=== PATIENT | female | born 1975 | race Caucasian/White ===

== ENCOUNTER → 2017-02-06 | Outpatient (CLI) | payer OTHER ==
[2017-02-06 08:58] LABS: CHLORIDE,CL 105 mmol/L (98-110); SODIUM,NA 139 mmol/L (136-146)
== END ==
LOC: MW.CHFP 08:13
PROVIDERS: ATTEND Nurse Practitioner Family
DX: I10 Essential (primary) hypertension (principal); R73.09 Other abnormal glucose
CPT/HCPCS: 36415; 80053; 80061; 83036

== ENCOUNTER 2019-11-14 16:25 | Emergency (ER) | payer OTHER ==
[2019-11-14] MEDS ORDERED: Piperacillin/Tazobactam 3.375 GM in Sodium Chloride 0.9% 50 ML IV ONE (17:09)
[2019-11-14] MEDS ORDERED: Ondansetron 4 MG/2 ML SDV IVPUSH ONE (17:10)
[2019-11-14] MEDS ORDERED: Sodium Chloride 0.9% 1,000 ML IV SCH (17:15)
--- NOTE | 2019-11-14 17:31 | EDM.PDOC ---
<Esteban Avalosght - Last Filed: 11/14/19 19:18> ED HPI GENERAL MEDICAL PROBLEM - General Chief Complaint: Abdominal Pain Stated Complaint: ABDOMINAL PAIN Time Seen by Provider: 11/14/19 17:00 Source of Information: Reports: Patient History Limitations: Reports: No Limitations - History of Present Illness Onset: Sudden, Gradual (over past 4 days but has gotten worse in that if she is driving and hits a bump it hurts.) Duration: Getting Worse (As noted above.) Location: Reports: Abdomen (RLQ of the abdomen.) Quality: Reports: Sharp, Stabbing, Throbbing Severity: Moderate (moderate when laying down it's a 7 but when she stands up it 's 9.5) Improves with: Reports: Movement (especially when standing up.), Other (laying on either side.) Context: Reports: Activity Associated Symptoms: Reports: Fever/Chills (slight fever with mild ), Loss of Appetite, Nausea/Vomiting (Nausea but no vomiting). Denies: Shortness of Breath , Syncope, Weakness ABD Pain Score (Numeric/FACES): 9 - Related Data Allergies Allergy/AdvReac Type Severity Reaction Status Date / Time doxycycline Allergy Itching Verified 11/14/19 16:53 emollient combination no. 21 Allergy Itching Verified 11/14/19 17:34 [From Lola Nourishing Caruso Butter] lanolin Allergy Rash Verified 11/14/19 16:53 Penicillins Allergy Swelling Verified 11/14/19 16:53 sulfamethoxazole Allergy Itching Verified 11/14/19 16:53 [From Bactrim] trimethoprim [From Bactrim] Allergy Itching Verified 11/14/19 16:53 Home Meds: Home Meds Gabapentin [Neurontin] 300 mg PO TID 02/11/15 [History] Lisinopril 10 mg PO DAILY 02/11/15 [History] Venlafaxine HCl [Venlafaxine ER] 150 mg PO DAILY 02/11/15 [History] hydroCHLOROthiazide [Hydrochlorothiazide] 25 mg PO DAILY PRN 02/11/15 [History] traZODone 25 mg PO BEDTIME 02/11/15 [History] traMADol [Ultram] 50 mg PO Q6H PRN #20 tab 08/27/15 [Rx] Past Medical History Cardiovascular History: Reports: Hypertension Psychiatric History: Reports: Anxiety, Depression - Infectious Disease History Infectious Disease History: Reports: Chicken Pox Social & Family History - Family History Family Medical History: Noncontributory - Tobacco Use Smoking Status *Q: Never Smoker - Recreational Drug Use Recreational Drug Use: No ED ROS GENERAL - Review of Systems Review Of Systems: See Below Constitutional: Reports: Fever, Decreased Appetite. Denies: Fatigue, Night Sweats, Diaphoresis, Weight Loss HEENT: Reports: No Symptoms Respiratory: Reports: No Symptoms Cardiovascular: Reports: No Symptoms. Denies: Dyspnea on Exertion, Edema, Lightheadedness, Palpitations, PND, Syncope Endocrine: Reports: No Symptoms GI/Abdominal: Reports: Abdominal Pain (Right lower quad.), Anorexia, Decreased Appetite, Nausea. Denies: Black Stool, Bloody Stool, Constipation, Diarrhea, Vomiting : Reports: No Symptoms Musculoskeletal: Reports: No Symptoms Skin: Reports: No Symptoms Neurological: Reports: No Symptoms Psychiatric: Reports: No Symptoms Hematologic/Lymphatic: Reports: No Symptoms Immunologic: Reports: No Symptoms ED EXAM, GI/ABD - Physical Exam Exam: See Below Exam Limited By: No Limitations General Appearance: Alert, Moderate Distress (Especially with movement.), Obese. No: Cachetic, Active Emesis Eyes: Bilateral: Normal Appearance, EOMI Ears: Normal External Exam, Normal Canal, Hearing Grossly Normal, Normal TMs Nose: Normal Inspection, Normal Mucosa, No Blood Throat/Mouth: Normal Inspection, Normal Lips, Normal Teeth, Normal Gums, Normal Oropharynx, Normal Voice, No Airway Compromise Head: Atraumatic, Normocephalic Neck: Normal Inspection, Supple, Non-Tender, Full Range of Motion Respiratory/Chest: No Respiratory Distress, Lungs Clear, Normal Breath Sounds, No Accessory Muscle Use, Chest Non-Tender Cardiovascular: Normal Peripheral Pulses, No JVD, No Murmur, No Rub, JVD GI/Abdominal Exam: Normal Bowel Sounds, Guarding (in the right lower quad), Rebound (RLQ), Tender (RLQ). No: Mass, Hepatomegaly, Splenomegaly Rectal (Female) Exam: Normal Exam, Normal Rectal Tone. No: Fecal Impaction, Heme + Stool (hemocult is negative for blood.), Perirectal Abscess Back Exam: Normal Inspection, Full Range of Motion. No: CVA Tenderness (L), CVA Tenderness (R) Extremities: Normal Inspection, Normal Range of Motion, Non-Tender, Normal Capillary Refill, No Pedal Edema Neurological: Alert, Oriented, CN II-XII Intact, Normal Cognition, Normal Gait, Normal Reflexes, No Motor/Sensory Deficits Psychiatric: Normal Affect, Normal Mood Skin Exam: Warm, Dry, Intact, Normal Color, No Rash Lymphatic: No Adenopathy Course - Vital Signs Last Recorded V/S: Last Vital Signs Temp 36.7 C 11/14/19 20:17 Pulse 99 11/14/19 20:17 Resp 16 11/14/19 20:17 BP 154/83 H 11/14/19 20:17 Pulse Ox 98 11/14/19 20:17 - Orders/Labs/Meds Orders: Active Orders 24 hr Category Date Time Status EKG 12 Lead [EKG Documentation Completion] [RC] STAT Care 11/14/19 17:22 Active CULTURE BLOOD [BC] Stat Lab 11/14/19 17:03 Received CULTURE BLOOD [BC] Stat Lab 11/14/19 17:16 Received UA RFX AUGIE AND CULT IF INDIC [URIN] Stat Lab 11/14/19 17:07 Ordered Sodium Chloride 0.9% [Normal Saline] 1,000 ml Med 11/14/19 17:15 Active IV STAT Blood Culture x2 Reflex Set [OM.PC] Stat Oth 11/14/19 17:08 Ordered Medication Orders Sodium Chloride (Normal Saline) 1,000 mls @ 2,000 mls/hr IV STAT MELISSA Last Admin: 11/14/19 17:22 Dose: 2,000 mls/hr Labs: Laboratory Tests 11/14/19 11/14/19 11/14/19 Range/Units 17:03 17:03 17:03 WBC 18.98 H (4.0-11.0) K/uL RBC 4.14 L (4.30-5.90) M/uL Hgb 13.6 (12.0-16.0) g/dL Hct 39.0 (36.0-46.0) % MCV 94.2 (80.0-98.0) fL MCH 32.9 H (27.0-32.0) pg MCHC 34.9 (31.0-37.0) g/dL RDW Std Deviation 45.3 (28.0-62.0) fl RDW Coeff of Sandro 13 (11.0-15.0) % Plt Count 222 (150-400) K/uL MPV 11.50 (7.40-12.00) fL Neut % (Auto) 83.4 H (48.0-80.0) % Lymph % (Auto) 11.0 L (16.0-40.0) % Green % (Auto) 5.3 (0.0-15.0) % Eos % (Auto) 0.2 (0.0-7.0) % Baso % (Auto) 0.1 (0.0-1.5) % Neut # (Auto) 15.8 H (1.4-5.7) K/uL Lymph # (Auto) 2.1 (0.6-2.4) K/uL Green # (Auto) 1.0 H (0.0-0.8) K/uL Eos # (Auto) 0.0 (0.0-0.7) K/uL Baso # (Auto) 0.0 (0.0-0.1) K/uL Nucleated RBC % 0.0 /100WBC Nucleated RBCs # 0 K/uL Lactate 1.3 (0.20-2.00) mmol/L Sodium 138 (136-145) mmol/L Potassium 4.0 (3.5-5.1) mmol/L Chloride 101 (98-107) mmol/L Carbon Dioxide 25.7 (21.0-32.0) mmol/L BUN 10 (7.0-18.0) mg/dL Creatinine 0.9 (0.6-1.0) mg/dL Est Cr Clr Drug Dosing 71.03 mL/min Estimated GFR (MDRD) > 60.0 ml/min Glucose 103 (74-106) mg/dL Calcium 9.3 (8.5-10.1) mg/dL Total Bilirubin 1.0 (0.2-1.0) mg/dL AST 27 (15-37) IU/L ALT 44 (14-63) IU/L Alkaline Phosphatase 79 (46-116) U/L Troponin I (0.000-0.056) ng/mL Total Protein 7.8 (6.4-8.2) g/dL Albumin 3.9 (3.4-5.0) g/dL Globulin 3.9 (2.6-4.0) g/dL Albumin/Globulin Ratio 1.0 (0.9-1.6) 11/14/19 Range/Units 17:03 WBC (4.0-11.0) K/uL RBC (4.30-5.90) M/uL Hgb (12.0-16.0) g/dL Hct (36.0-46.0) % MCV (80.0-98.0) fL MCH (27.0-32.0) pg MCHC (31.0-37.0) g/dL RDW Std Deviation (28.0-62.0) fl RDW Coeff of Sandro (11.0-15.0) % Plt Count (150-400) K/uL MPV (7.40-12.00) fL Neut % (Auto) (48.0-80.0) % Lymph % (Auto) (16.0-40.0) % Green % (Auto) (0.0-15.0) % Eos % (Auto) (0.0-7.0) % Baso % (Auto) (0.0-1.5) % Neut # (Auto) (1.4-5.7) K/uL Lymph # (Auto) (0.6-2.4) K/uL Green # (Auto) (0.0-0.8) K/uL Eos # (Auto) (0.0-0.7) K/uL Baso # (Auto) (0.0-0.1) K/uL Nucleated RBC % /100WBC Nucleated RBCs # K/uL Lactate (0.20-2.00) mmol/L Sodium (136-145) mmol/L Potassium (3.5-5.1) mmol/L Chloride (98-107) mmol/L Carbon Dioxide (21.0-32.0) mmol/L BUN (7.0-18.0) mg/dL Creatinine (0.6-1.0) mg/dL Est Cr Clr Drug Dosing mL/min Estimated GFR (MDRD) ml/min Glucose (74-106) mg/dL Calcium (8.5-10.1) mg/dL Total Bilirubin (0.2-1.0) mg/dL AST (15-37) IU/L ALT (14-63) IU/L Alkaline Phosphatase (46-116) U/L Troponin I < 0.050 (0.000-0.056) ng/mL Total Protein (6.4-8.2) g/dL Albumin (3.4-5.0) g/dL Globulin (2.6-4.0) g/dL Albumin/Globulin Ratio (0.9-1.6) Meds: Medications Generic Name Dose Route Start Last Admin Trade Name Freq PRN Reason Stop Dose Admin Sodium Chloride 1,000 mls @ 2,000 mls/hr 11/14/19 17:15 11/14/19 17:22 Normal Saline IV 2,000 mls/hr STAT MELISSA Administration Discontinued Medications Generic Name Dose Route Start Last Admin Trade Name Freq PRN Reason Stop Dose Admin Piperacillin Sod/Tazobactam 50 mls @ 100 mls/hr 11/14/19 17:09 11/14/19 17:22 Sod 3.375 gm/ Sodium Chloride IV 11/14/19 17:38 100 mls/hr ONETIME ONE Administration Iopamidol 100 ml 11/14/19 18:48 11/14/19 18:50 Isovue Multipack-370 (76%) IVPUSH 11/14/19 18:49 100 ml ONETIME STA Administration Ondansetron HCl 4 mg 11/14/19 17:10 11/14/19 17:22 Zofran IVPUSH 11/14/19 17:11 4 mg ONETIME ONE Administration - Radiology Interpretation Free Text/Narrative:: I discussed this case with Dr. Nathan as a handoff. He will review the CT scan of the abdomen and pelvis with IV contrast. All other studies are back. Once the official review has been done by the radiologist, Dr. Nathan will talk with the general surgeon regarding her care. I believe the patient has acute appendicitis. Departure - Departure Disposition: Home, Self-Care 01 Clinical Impression: Colitis - Discharge Information Instructions: Abdominal Pain, Adult, [id number] Referrals: [facility] [Primary Care Provider] - Forms: ED Department Discharge Additional Instructions: The following information is given to patients seen in the emergency department who are being discharged to home. This information is to outline your options for follow-up care. We provide all patients seen in our emergency department with a follow-up referral. The need for follow-up, as well as the timing and circumstances, are variable depending upon the specifics of your emergency department visit. If you don't have a primary care physician on staff, we will provide you with a referral. We always advise you to contact your personal physician following an emergency department visit to inform them of the circumstance of the visit and for follow-up with them and/or the need for any referrals to a consulting specialist. The emergency department will also refer you to a specialist when appropriate. This referral assures that you have the opportunity for follow-up care with a specialist. All of these measure are taken in an effort to provide you with optimal care, which includes your follow-up. Under all circumstances we always encourage you to contact your private physician who remains a resource for coordinating your care. When calling for follow-up care, please make the office aware that this follow-up is from your recent emergency room visit. If for any reason you are refused follow-up, please contact the [facility] Emergency Department at and asked to speak to the emergency department charge nurse. Please take antibiotics as prescribed. Return to the emergency department immediately for high fevers, worsening of pain, inability to tolerate oral liquids or foods. Return also if you have any other emergent concerns. Sepsis Event Note - Evaluation Sepsis Screening Result: Sepsis Risk - Focused Exam Vital Signs: Vital Signs Temp Pulse Resp BP Pulse Ox 11/14/19 20:17 36.7 C 99 16 154/83 H 98 11/14/19 19:37 37.0 C 96 18 148/91 H 97 11/14/19 19:24 36.7 C 94 16 140/89 97 11/14/19 16:50 37.4 C 106 H 16 139/84 98 Date Exam was Performed: 11/14/19 Time Exam was Performed: 19:18 ED Communication - Discussed Case With (1) Discussed Case With (1): Other Provider <Rick Nathan - Last Filed: 11/14/19 20:31> Departure - Departure Time of Disposition: 20:27 Sepsis Event Note - Focused Exam Date Exam was Performed: 11/14/19 Time Exam was Performed: 20:27 - Assessment/Plan Assessment:: The signout from Dr. Avalos. Patient reassessed at bedside with Dr. Avalos. Patient's abdominal exam exhibits some left lower quadrant tenderness with minimal right lower quadrant tenderness. Patient has no McBurney's tenderness. Patient's abdomen remains soft without any guarding. CT scan reviewed demonstrate likely colitis without any evidence of diverticulitis or appendicitis. In addition, there is no UA done in the emergency department however the patient did have a urinalysis done earlier today which was without any evidence of infection. Patient is tolerating p.o. given that there is no evidence of sepsis at this time and that the patient is tolerating p.o. The options were weighed with patient of observation in the emergency department versus inpatient or being discharged home with oral antibiotics. I feel that the patient does not have any emergent intra- abdominal infection that would require surgery at this time and made my concerns and thoughts noted to patient. Patient will be sent home with oral antibiotics for colitis and given return precautions for any worsening of pain, inability to tolerate oral liquids or foods.
[2019-11-14 17:57] LABS: BLOOD UREA NITROGEN,BUN 10 mg/dL (7.0-18.0); CARBON DIOXIDE,CO2 25.7 mmol/L (21.0-32.0); CHLORIDE,CL 101 mmol/L (98-107); GLUCOSE RANDOM 103 mg/dL (74-106); SODIUM,NA 138 mmol/L (136-145)
[2019-11-14] MEDS ORDERED: Iopamidol 755 MG/ML 200 ML Multipack Bottle IVPUSH STA (18:48)
--- NOTE | 2019-11-14 19:19 | CT ---
INDICATION: Abdominal pain. Rule out appendicitis. COMPARISON: 02/11/2015 TECHNIQUE: CT examination of the abdomen and pelvis was performed with the uneventful intravenous administration of 100 cc of Isovue 370 while 3 mm thick axial sections were obtained from the lung bases through the pubic symphysis. Oral contrast was not administered. Please note that all CT scans at this facility use dose modulation, iterative reconstruction, and/or weight-based dosing when appropriate to reduce radiation dose to as low as reasonably achievable. FINDINGS: In the abdomen, the liver is now low in density, representing new fatty infiltration. There is no sign of mass. The spleen, pancreas and adrenals are normal in appearance. The kidneys are normal in appearance. The gallbladder is normal in appearance. The abdominal aorta is normal in caliber with no sign of dilatation. There is no sign of retroperitoneal mass or adenopathy. The stomach, loops of small bowel, and right colon in the abdomen are normal in appearance. There is no change in mild diverticulosis of the left transverse colon. The descending colon is normal in appearance. In the pelvis, the appendix is normal in appearance with no sign of inflammatory process. The loops of small bowel are normal in appearance. There is new prominent inflammatory reaction surrounding the mid and distal sigmoid colon, sparing the rectum. There is prominent mucosal thickening throughout this portion of the colon. There is a single inflamed diverticulum in this region, located in the mid sigmoid colon, but this would not explain the long segment of involvement distally. The findings are most consistent with a prominent distal sigmoid colitis. There is no sign of fluid collection to suggest an abscess. There is a minimal amount of free fluid in the pelvis. There is no sign of free air or extraluminal air in the abdomen or pelvis. There is no change in mild diverticulosis of the proximal sigmoid colon, without any inflammation to suggest diverticulitis. The uterus is now seen to have sterilization wire implants bilaterally. The left ovary contains a new cyst measuring 2.2 centimeters in diameter. The right ovary contains a cyst measuring 2.0 centimeters in diameter, slightly increased in size from the 1.8 centimeter cyst seen previously. The urinary bladder is normal in appearance. There is no sign of pelvic or inguinal mass or adenopathy. The lung bases are clear. The osseous structures are normal in appearance for the patient`s age. IMPRESSION: CT of the abdomen shows new fatty infiltration of the liver. No change in mild diverticulosis of the left transverse colon. CT of the pelvis shows new prominent inflammation of the mid and distal sigmoid colon consistent with a prominent colitis. I do not believe that this represents diverticulitis, although I cannot entirely exclude this. The long segment of involvement argues against diverticulitis. Tiny amount of free fluid in the pelvis. Mild proximal sigmoid diverticulosis without additional evidence of diverticulitis. New 2.2 centimeter cyst in the left ovary with slight increase in size of cyst in right ovary, now 2.0 centimeters. New sterilization wires placed in the uterus bilaterally. Normal appearance of the appendix. Please note that all CT scans at this facility use dose modulation, iterative reconstruction, and/or weight-based dosing when appropriate to reduce radiation dose to as low as reasonably achievable. Dictated by Slick Sung MD @ Nov 14 2019 7:03PM Signed by Dr. Slick Sung @ Nov 14 2019 7:16PM
[2019-11-14 20:18] VITALS: BP 154/83; PULSE 99
== END 2019-11-14 20:34 | disposition home or self-care (01) ==
LOC: MW.ED 16:25
DX: K52.9 Noninfective gastroenteritis and colitis, unspecified (principal); I10 Essential (primary) hypertension; F41.9 Anxiety disorder, unspecified; F32.9 Major depressive disorder, single episode, unspecified; Z88.8 Allergy status to other drugs, medicaments and biological substances; Z88.2 Allergy status to sulfonamides; Z88.1 Allergy status to other antibiotic agents; Z91.048 Other nonmedicinal substance allergy status; Z79.899 Other long term (current) drug therapy
CPT/HCPCS: 36415; 74177; 80053; 83605; 84484; 85025; 87040; 93005; 96361; 96365; 96375; 99284; J2405; J2543; J7030; J7050; Q9967